=== PATIENT | female | born 1990 | race Caucasian/White ===

== ENCOUNTER 2020-09-23 09:11 | Inpatient (IN) | payer OTHER ==
[2020-09-23] MEDS ORDERED: MINERAL OIL 30 ML ORAL LIQD PO PRN (11:00)
[2020-09-23] MEDS ORDERED: OXYTOCIN DRIP 30 UNITS/500 ML BAG IV SCH (11:00)
[2020-09-23] MEDS ORDERED: PROMETHAZINE 25 MG TAB PO PRN ×2 (11:00→19:44)
[2020-09-23] MEDS ORDERED: BUTORPHANOL 2 MG/1 ML INJ IV PRN ×2 (11:00)
[2020-09-23] MEDS ORDERED: ONDANSETRON 4 MG/2 ML INJ IV PRN ×2 (11:00→19:44)
[2020-09-23] MEDS ORDERED: ePHEDrine SULFATE 50 MG/1 ML INJ IV PRN (11:00)
[2020-09-23] MEDS ORDERED: fentaNYL 100 MCG/2 ML INJ IV PRN (11:00)
[2020-09-23] MEDS ORDERED: NALOXONE 0.4 MG/1 ML INJ IV PRN (11:00)
[2020-09-23] MEDS ORDERED: LACTATED RINGERS 1,000 ML IV SCH (11:00)
[2020-09-23] MEDS ORDERED: TERBUTALINE 1 MG/1 ML INJ SUB-Q PRN (11:00)
[2020-09-23] MEDS ORDERED: AMPICILLIN/NS 2 GM/100 ML 2 GM/100 ML BAG IV SCH (11:00)
[2020-09-23] MEDS ORDERED: LIDOCAINE (2%) 20 MG/1 ML VIAL 20 ML MDV INFILTRATI SCH (11:00)
[2020-09-23 11:17] LABS: Hematocrit 35.7 % (30.3-42.9); Hemoglobin 12.2 gm/dl (10.1-14.3); Mean Corpuscular HGB Conc 34 % (30-34); Mean Corpuscular Volume 89 fl (79-97); Platelet Count 266 K/mm3 (140-440); Red Blood Count 4.03 M/mm3 (3.65-5.03); Red Cell Distribution Width 13.7 % (13.2-15.2)
--- NOTE | 2020-09-23 13:11 | History and Physical Report ---
History of Present Illness Date of examination: 09/23/20 Date of admission: 09/23/20 Chief complaint: Contractions History of present illness: Pt is a 30 yo at 39w0d EGA who presents reporting uterine contractions this morning. She reports positive movement and denies LOF or vaginal bleeding. She has received care with [facility] product marketing consultant. Her course has been complicated by glucose intolerance with normal 3hr GTT. She is GBS positive. Past History Past Medical History: no pertinent history Past Surgical History: no surgical history Family/Genetic History: none Social history: no significant social history - Obstetrical History Expected Date of Delivery: 09/30/20 Actual Gestation: 39 Week(s) 0 Day(s) : 1 Para: 0 Hx # Term Pregnancies: 0 Number of Pregnancies: 0 Spontaneous Abortions: 0 Induced : 0 Number of Living Children: 0 Medications and Allergies Allergies Allergy/AdvReac Type Severity Reaction Status Date / Time No Known Allergies Allergy Unverified 09/23/20 10:23 Home Medications Medication Instructions Recorded Confirmed Last Taken Type Complete Caplet 1 mg PO 09/23/20 09/23/20 History 1 Active Meds: Active Medications Butorphanol Tartrate (Butorphanol 2 Mg/1 Ml Inj) 1 mg IV Q2H PRN PRN Reason: Pain, Moderate(4-6) LABOR PAIN Butorphanol Tartrate (Butorphanol 2 Mg/1 Ml Inj) 2 mg IV Q2H PRN PRN Reason: Pain , Severe (7-10) Ephedrine Sulfate (Ephedrine Sulfate 50 Mg/1 Ml Inj) 10 mg IV Q2M PRN PRN Reason: Hypotension Fentanyl (Fentanyl 100 Mcg/2 Ml Inj) 100 mcg IV Q2H PRN PRN Reason: Pain,Severe (7-10) LABOR PAIN Lactated Ringer's (Lactated Ringers) 1,000 mls @ 125 mls/hr IV DIRECT KULWANT Last Admin: 09/23/20 11:30 Dose: 125 mls/hr Documented by: Oxytocin/Sodium Chloride (Pitocin/Ns 30 Unit/500ml) 30 units in 500 mls @ 40 mls/hr IV TITR KULWANT; Protocol Ampicillin Sodium (Ampicillin/Ns 2 Gm/100 Ml) 2 gm in 100 mls @ 100 mls/hr IV ONCE KULWANT; Protocol Stop: 09/23/20 15:00 Last Admin: 09/23/20 11:31 Dose: 100 mls/hr Documented by: Ampicillin Sodium (Ampicillin/Ns 1 Gm/50 Ml) 1 gm in 50 mls @ 100 mls/hr IV Q4H KULWANT; Protocol Lidocaine (Lidocaine (2%) 20 Mg/1 Ml Vial 20 Ml Mdv) 20 ml INFILTRATI ONCE KULWANT Stop: 09/24/20 10:59 Mineral Oil (Mineral Oil 30 Ml Oral Liqd) 30 ml PO QHS PRN PRN Reason: Constipation Naloxone HCl (Naloxone 0.4 Mg/1 Ml Inj) 0.1 mg IV Q2MIN PRN PRN Reason: Res Rate </= 8 or 02 SAT < 92% Ondansetron HCl (Ondansetron 4 Mg/2 Ml Inj) 4 mg IV Q8H PRN PRN Reason: Nausea And Vomiting Promethazine HCl (Promethazine 25 Mg Tab) 25 mg PO Q6H PRN PRN Reason: Nausea And Vomiting Terbutaline Sulfate (Terbutaline 1 Mg/1 Ml Inj) 0.25 mg SUB-Q ONCE PRN PRN Reason: Hyperstimulation/Hypertonicity Review of Systems All systems: negative Genitourinary: contractions, no vaginal bleeding, no leakage of fluid, no genital sores - Vital Signs Vital signs: Vital Signs Pulse Ox 70 L 09/23/20 10:00 Temp Pulse Resp BP Pulse Ox 98.2 F 95 H 20 117/80 96 09/23/20 10:11 09/23/20 13:03 09/23/20 10:11 09/23/20 13:00 09/23/20 13:03 - Physical Exam Abdomen: Positive: soft. Negative: distention, tenderness, guarding Genitourinary (Female): Positive: normal external genitalia. Negative: perineal/vulvar lesions Uterus: Positive: enlarged (gravid, EFW 6lb) Extremities: Positive: normal - Obstetrical FHR: category 1 Uterine Contraction Monitor Mode: External Cervical Dilatation: 6 Cervical Effacement Percentage: 70 station: -2 Uterine Contraction Pattern: Irregular Uterine Tone Measurement Phase: Contraction Uterine Contraction Intensity: Moderate Results Result Diagrams: 09/23/20 10:55 All other labs normal. Assessment and Plan A: 30 yo at 39w0d EGA Advanced cervical dilation GBS positive Glucose intolerance without gestational diabetes P: Admit to L&D AROM at 1303 clear fluid, FHT reassuring throughout Augment labor PRN Ampicillin prophylaxis Anticipate
[2020-09-23] MEDS ORDERED: AMPICILLIN/NS 1 GM/50 ML 1 GM/50 ML BAG IV SCH (15:00)
[2020-09-23] MEDS ORDERED: miSOPROStol 200 MCG TAB ONE (18:10)
[2020-09-23] MEDS ORDERED: miSOPROStol 100 MCG TAB ONE (18:11)
[2020-09-23] MEDS ORDERED: miSOPROStol 200 MCG TAB PR ONE (18:14)
[2020-09-23] MEDS ORDERED: MORPHINE 2 MG/1 ML INJ IV ONE (18:53)
--- NOTE | 2020-09-23 19:43 | Procedure Note ---
OB Delivery Note - Delivery Date of Delivery: 09/23/20 Estimated blood loss: other (700cc) - Vaginal Delivery presentation: vertex Delivery position: OA Intrapartum events: PROM->1hr before delivery, hemorrhage (resolved with IV Pitocin and Cytotec 800mcg [place]), uterine atony Delivery induction: AROM Delivery augmentation: pitocin Delivery monitor: external FHT, external uterine Route of delivery: Delivery placenta: spontaneous Delivery cord: nuchal cord (and body x2), 3 umbilical vessels Episiotomy: midline (1cm) Delivery laceration: 2nd degree Delivery repair: vicryl Anesthesia: local, intravenous - A at 1 minute: 8 at 5 minutes: 9 Infant Gender: Female
[2020-09-23] MEDS ORDERED: PROMETHAZINE 25 MG RECT SUPP PR PRN (19:44)
[2020-09-23] MEDS ORDERED: diphenhydrAMINE 25 MG CAP PO PRN (19:44)
[2020-09-23] MEDS ORDERED: MAGNESIUM HYDROXIDE (MOM) ORAL LIQD UDC PO PRN (19:44)
[2020-09-23] MEDS ORDERED: LANOLIN/ZINC/DIMETHICONE (LANSINOH) 7 GM TP PRN (19:44)
[2020-09-23] MEDS ORDERED: WITCH HAZEL/ GLYCERIN PAD TP PRN (19:44)
[2020-09-24] MEDS: IBUPROFEN 600 MG TAB PO SCH ×3 (00:12→17:12)
--- NOTE | 2020-09-24 07:37 | Progress Note ---
Assessment and Plan A: PPD1 s/p VSS Lab results pending Pt reports walnut sized clots throughout the night, denies lightheadedness Interested in exclusive BFing P: Plan for discharge tomorrow pending lab results and bleeding Meet with managed security sales consultant Routine PP care Subjective - Subjective Date of service: 09/24/20 Principal diagnosis: s/p Interval history: PPD1 s/p Patient reports: appetite normal, voiding normally, pain well controlled, ambulating normally [place]: doing well, bottle feeding Objective - Vital Signs Latest vital signs: Vital Signs Temp Pulse Resp BP BP Pulse Ox 09/24/20 04:00 98 F 66 18 110/71 09/24/20 00:00 98.6 F 64 18 104/66 09/23/20 21:00 99.1 F 100 H 20 116/64 99 09/23/20 20:24 98 H 98 09/23/20 20:19 89 98 09/23/20 20:14 105 H 104/72 97 09/23/20 20:09 98 H 96 09/23/20 20:04 100 H 96 09/23/20 20:00 97 H 107/71 09/23/20 19:59 98 H 96 09/23/20 19:55 106 H 94 09/23/20 19:54 104 H 95 09/23/20 19:49 103 H 95 09/23/20 19:44 96 H 111/67 99 09/23/20 19:39 89 98 09/23/20 19:34 90 98 09/23/20 19:29 98 H 111/66 98 09/23/20 19:24 96 H 98 09/23/20 19:19 95 H 97 09/23/20 19:15 99.0 F 94 H 18 106/64 98 09/23/20 19:14 95 H 106/64 98 09/23/20 19:09 90 97 09/23/20 19:04 92 H 98 09/23/20 18:59 102 H 116/66 98 09/23/20 18:54 91 H 98 09/23/20 18:49 93 H 99 09/23/20 18:44 98 H 107/56 97 09/23/20 18:39 90 98 09/23/20 18:34 95 H 97 09/23/20 18:29 96 H 112/60 09/23/20 18:16 108 H 118/54 09/23/20 18:10 97.8 F 09/23/20 13:28 104 H 94 09/23/20 13:23 115 H 95 09/23/20 13:18 96 H 94 09/23/20 13:17 105 H 94 09/23/20 13:13 94 H 95 09/23/20 13:10 109 H 94 09/23/20 13:08 91 H 95 09/23/20 13:03 95 H 96 09/23/20 13:00 45 L 117/80 09/23/20 12:58 111 H 95 09/23/20 12:53 99 H 97 09/23/20 12:48 81 96 09/23/20 12:43 96 H 96 09/23/20 12:38 94 H 97 09/23/20 12:33 90 97 09/23/20 12:28 89 97 09/23/20 12:23 94 H 97 09/23/20 12:18 105 H 97 09/23/20 12:13 96 H 97 09/23/20 12:08 91 H 97 09/23/20 12:03 94 H 97 09/23/20 11:58 89 96 09/23/20 11:53 91 H 97 09/23/20 11:50 89 112/70 09/23/20 11:48 86 98 09/23/20 11:35 99 H 97 09/23/20 11:30 86 98 09/23/20 11:25 108 H 97 09/23/20 11:20 91 H 97 09/23/20 11:15 90 96 09/23/20 11:10 95 H 96 09/23/20 11:05 88 96 09/23/20 11:00 83 93 09/23/20 10:55 111 H 95 09/23/20 10:52 95 H 94 09/23/20 10:50 93 H 97 09/23/20 10:45 81 97 09/23/20 10:40 109 H 95 09/23/20 10:35 93 H 95 09/23/20 10:34 96 H 94 09/23/20 10:30 95 H 97 09/23/20 10:25 93 H 94 09/23/20 10:22 99 H 93 01/20/21 10:20 101 H 96 09/23/20 10:15 109 H 97 09/23/20 10:11 98.2 F 97 H 20 94 09/23/20 10:10 96 H 96 09/23/20 10:05 100 H 94 09/23/20 10:01 89 112/68 09/23/20 10:00 70 L Intake and Output 09/23/20 09/23/20 09/24/20 15:59 23:59 07:59 Intake Total 1.067 5 Output Total 800 Balance 1.067 5 -800 Intake: IV 1.067 5 PITOCin/NS 30 UNIT/500ML 1.067 5 30 units In 500 ml @ 40 mls/hr IV TITR KULWANT Rx#: [id number] Output: Urine 800 Void 800 Other: Total, Output Amount 800 # Voids Void 1 1 Weight 128 lb Estimated Blood Loss 600 - Exam Breasts: Present: normal Abdomen: Present: normal appearance, soft, normal bowel sounds. Absent: distention, tenderness, guarding Uterus: Present: normal, firm, fundal height below umbilicus. Absent: bogginess, tenderness Extremities: Present: normal
[2020-09-24 08:28] LABS: Hematocrit 30.7 % (30.3-42.9); Hemoglobin 10.3 gm/dl (10.1-14.3)
[2020-09-24] MEDS ORDERED: BENZOCAINE/MENTHOL 20/0.5% TOP SPRAY 56 GM TP PRN (11:24)
--- NOTE | 2020-09-24 18:37 | Discharge Summary ---
Providers - Providers Date of Admission: 09/23/20 13:00 Date of discharge: 09/25/20 Attending physician: SIENNA SCHMIDT MD 09/23/20 19:44 Consult to Wearing Apparel Assembler [CONS] Routine Reason For Exam: assistance with , SNS Primary care physician: SIENNA SCHMIDT MD Hospitalization Reason for admission: active labor, IUP at term Delivery: Episiotomy: midline Laceration: 2nd degree Other procedures: none complications: none Discharge diagnosis: IUP at term delivered baby: female Condition at discharge: Good Disposition: DC-01 TO HOME OR SELFCARE Plan - Discharge Medications Prescriptions: Ibuprofen [Motrin] 600 mg PO Q6H PRN #60 tablet PRN Reason: Pain - Provider Discharge Summary Activity: routine, no sex for 6 weeks, no heavy lifting 4 weeks, no strenuous ex ercise Diet: routine Instructions: routine Additional instructions: [] Smoking cessation referral if applicable(refer to patient education folder for contact #) [] Refer to [facility] Booklet Call your doctor immediately for: * Fever > 100.5 * Heavy vaginal bleeding ( >1 pad per hour) * Severe persistent headache * Shortness of breath * Reddened, hot, painful area to leg or breast * Drainage or odor from incision. * Keep incision clean and dry at all times and follow doctor's instructions regarding bathing/showering - Follow up plan Follow up: NUSRAT BARRAZA CNM [Advanced Practice Nurse] - 14 Days (Please call [facility] supervisor film processing to schedule appointment.)
[2020-09-25] MEDS: IBUPROFEN 600 MG TAB PO SCH ×3 (00:30→12:26)
[2020-09-25 13:56] VITALS: BP 110/76
== END 2020-09-25 14:28 | disposition home or self-care (01) | DRG 807 ==
LOC: TRG 09:11 → APU 09:12 → LD 11:37 → TRG 18:31 → OB 21:12
PROVIDERS: ADMIT Obstetrics & Gynecology; ATTEND Obstetrics & Gynecology
PROC: 10E0XZZ Delivery of Products of Conception, External Approach (ICD-10-PCS; principal; 2020-09-23)
PROC: 10907ZC Drainage of Amniotic Fluid, Therapeutic from Products of Conception, Via Natural or Artificial Opening (ICD-10-PCS; 2020-09-23)
PROC: 0KQM0ZZ Repair Perineum Muscle, Open Approach (ICD-10-PCS; 2020-09-23)
PROC: 0W8NXZZ Division of Female Perineum, External Approach (ICD-10-PCS; 2020-09-23)
DX: O98.82 Other maternal infectious and parasitic diseases complicating childbirth (principal); Z37.0 Single live birth; Z3A.39 39 weeks gestation of pregnancy; Z20.822 Contact with and (suspected) exposure to COVID-19; O70.1 Second degree perineal laceration during delivery
CPT/HCPCS: 36415; 85014; 85018; 85027; 86592; 86850; 86900; 86901; G0378; J0290; J2270; J2590; J3010; J7120; U0003